=== PATIENT | male | born 1985 | race Caucasian/White ===

== ENCOUNTER 2018-07-21 13:19 | Inpatient (IN) | payer BC ==
[2018-07-21] MEDS ORDERED: Nicotine Inhaler* 10 MG AMP INH PRN (13:30)
--- NOTE | 2018-07-21 13:33 | ED ---
Psychiatric Complaint - HPI Summary HPI Summary: Pt is a 32 y/o male who presents to the ED s/p suicide attempt. He states hes been going through a lot recently, including breaking up with his girlfriend. Pt has been drinking a lot, and states he cant sleep or work. Last night he drank a pint of whiskey, and tried to kill himself by hooking a hose up to the exhaust of his car. He states he couldnt go through with it entirely, and called his friend to take him to the ED for help. He tried to check into rehab for his alcoholism, but everything was closed because of the holiday weekend. Pt feels very anxious right now. He has gone through alcohol withdrawal before. Pt states he has been eating normally. - History Of Current Complaint Chief Complaint: EDMentalHealth Time Seen by Provider: 07/21/18 13:29 Hx Obtained From: Patient Onset/Duration: Gradual Onset, Lasting Days - Last night, Still Present Character: Depressed, Anxious Aggravating Factor(s): Recent Stress, Alcohol Use Alleviating Factor(s): Nothing Has Suicidal: Reports: Thoughts, With A Plan, Demonstrates Gesture Has Homicidal: Denies: Thoughts - Allergies/Home Medications Allergies/Adverse Reactions: Allergies Allergy/AdvReac Type Severity Reaction Status Date / Time No Known Allergies Allergy Verified 07/21/18 13:26 PMH/Surg Hx/FS Hx/Imm Hx Endocrine/Hematology History: Denies: Hx Diabetes, Hx Thyroid Disease Cardiovascular History: Denies: Hx Hypertension Respiratory History: Denies: Hx Asthma, Hx Chronic Obstructive Pulmonary Disease (COPD) GI History: Denies: Hx Ulcer Infectious Disease History: No Infectious Disease History: Denies: Hx Clostridium Difficile, Hx Hepatitis, Hx Human Immunodeficiency Virus (HIV), Hx of Known/Suspected MRSA, Hx Shingles, Hx Tuberculosis, Hx Known/ Suspected VRE, Hx Known/Suspected VRSA, History Other Infectious Disease, Traveled Outside the [place] in Last 30 Days - Family History Known Family History: Negative: Other - alcoholism - Social History Alcohol Use: Daily Hx Substance Use: Yes Substance Use Type: Reports: Marijuana Review of Systems Negative: Fever Positive: Anxious, Depressed, Other - suicide ideations and attempt All Other Systems Reviewed And Are Negative: Yes Physical Exam - Summary Physical Exam Summary: Appearance: Well appearing, no pain distress Skin: warm, dry, flushing in face Head/face: normal Eyes: EOMI, SHRUTI, no nystagmus ENT: mucous membranes moist Neck: supple, non-tender Respiratory: CTA, breath sounds present Cardiovascular: RRR, pulses symmetrical Abdomen: non-tender, soft Bowel Sounds: present Musculoskeletal: normal, strength/ROM intact Neuro: normal, sensory motor intact, A&Ox3, fine tremor in hands Psych: tearful, mildly agitated, SI, flat affect, doesnt maintain eye contact Triage Information Reviewed: Yes Vital Signs On Initial Exam: Initial Vitals Temp Pulse Resp BP Pulse Ox 98.6 F 96 20 163/110 97 07/21/18 13:20 07/21/18 13:20 07/21/18 13:20 07/21/18 13:20 07/21/18 13:20 Vital Signs Reviewed: Yes Diagnostics - Vital Signs Vital Signs Temp Pulse Resp BP Pulse Ox 07/21/18 13:20 98.6 F 96 20 163/110 97 - Laboratory Result Diagrams: 07/21/18 13:50 07/21/18 13:50 Lab Statement: Any lab studies that have been ordered have been reviewed, and results considered in the medical decision making process. - EKG 13:51 Cardiac Rate: NL - 94 bpm EKG Rhythm: Sinus Rhythm Summary of EKG Findings: Nl axis, nl interval Re-Evaluation - Re-Evaluation First Eval Re-Evaluation Time: 13:40 Change: Unchanged Comment: Pt is medically cleared for a MHE. Course/Dx - Course Course Of Treatment: Patient sobered in the ER and was cleared for mental health evaluation. He was pending disposition by crisis at time of sign out to oncoming ER physician. Patient likely will be admitted. - Differential Dx/Clinical Impression Differential Diagnosis/HQI/PQRI: Positive: Acute Psychosis, Alcohol Intoxication , Anxiety, Bipolar Disorder, Depression, Suicidal Ideation, Suicidal Gesture Provider Diagnosis: Depression, Suicide gesture Discharge - Sign-Out/Discharge Documenting (check all that apply): Sign-Out Patient Signing out patient TO: Toñito Heart - Discharge Plan Condition: Stable Referrals: No Primary Care Phys,NOPCP [Primary Care Provider] - - Billing Disposition and Condition Condition: STABLE - Attestation Statements Document Initiated by Scribe: Yes Documenting Scribe: Mary Beth Kaye Provider For Whom Scribe is Documenting (Include Credential): Arnoldo Prince MD Scribe Attestation: I, Mary Beth Kaye, scribed for Arnoldo Prince MD on 07/21/18 at 1923. Scribe Documentation Reviewed: Yes Provider Attestation: The documentation as recorded by the scribe, Mary Beth Kaye accurately reflects the service I personally performed and the decisions made by me, Arnoldo Prince MD
[2018-07-21] MEDS ORDERED: LORazepam TAB(*) 1 MG PO ONE (13:38)
[2018-07-21 13:58] LABS: ABS Basophils 0.1 10^3/ul (0-0.2); ABS Eosinophils 0.1 10^3/ul (0-0.6); ABS Lymphocytes 1.1 10^3/ul (1.0-4.8); ABS Monocytes 0.9 10^3/ul (0-0.8); ABS Neutrophils 8.7 10^3/ul (1.5-7.7); ABS Nucleated RBC 0 10^3/ul; Eosinophil % 1.2 % (0-6); Hematocrit 48 % (42-52); Hemoglobin 16.3 g/dl (14.0-18.0); Lymphocyte % 10.2 % (25-47); Mean Corpuscular HGB Conc 34 g/dl (31-36); Mean Corpuscular Hemoglobin 31 pg (27-31); Mean Corpuscular Volume 92 fL (80-94); Mean Platelet Volume 9.3 fL (7.4-10.4); Nucleated Red Blood Cells % 0.4; Platelet Count 225 10^3/ul (150-450); Red Cell Distribution Width 13 % (10.5-15); White Blood Count 10.9 10^3/ul (3.5-10.8)
[2018-07-21 14:16] LABS: EGFR Non-African American 83.9 (>60)
[2018-07-21 16:22] LABS: Urine Appearance Clear; Urine Blood Negative (Negative); Urine Color Amber; Urine Ketones 1+ (Negative); Urine Protein Negative (Negative); Urine Urobilinogen Negative (Negative)
--- NOTE | 2018-07-21 20:45 | ED ---
Progress - Progress Note Progress Note: This patient was signed out to Dr. Heart, from Dr. Prince, pending dispo. MHE was done by Dr. Cruz at 2130 and the patient will be admitted with dx of depressive disorder. Patient understands and agrees with this plan. - Consult/PCP Time Called: 19:20 Re-Evaluation - Re-Evaluation First Eval Re-Evaluation Time: 13:40 Change: Unchanged Comment: Pt is medically cleared for a MHE. Course/Dx - Diagnoses Provider Diagnoses: Depressive disorder Discharge - Sign-Out/Discharge Documenting (check all that apply): Patient Departure - admit - Discharge Plan Condition: Stable Disposition: PSYCHIATRIC FACILITY-[facility] [place] - Billing Disposition and Condition Condition: STABLE Disposition: Psychiatric Facility [facility] [place] - Attestation Statements Document Initiated by Scribe: Yes Documenting Scribe: Hayden Trujillo Provider For Whom Scribe is Documenting (Include Credential): Toñito Heart MD Scribe Attestation: Hayden Stanton, scribed for Toñito Heart MD on 07/25/18 at 0737. Scribe Documentation Reviewed: Yes Provider Attestation: The documentation as recorded by the Hayden gustafson accurately reflects the service I personally performed and the decisions made by , Toñito Heart MD
[2018-07-22] MEDS ORDERED: Al Hydrox/Mg Hydrox/Simet LIQ* 30 ML UDC PO PRN (00:39)
[2018-07-22] MEDS ORDERED: Acetaminophen TAB* 325 MG PO PRN (00:39)
[2018-07-22] MEDS ORDERED: LORazepam IM 0-6 mg for WAM protocol IM SCH (06:00)
[2018-07-22] MEDS: Folic Acid TAB* 1 MG DAILY PO SCH ×2 (08:55→11:21)
[2018-07-22] MEDS: Vitamin THERAPEUTIC TAB PO SCH ×2 (08:55→11:21)
[2018-07-22] MEDS: LORazepam PO 0-6 for WAM protocol PO SCH (11:21)
[2018-07-22] MEDS ORDERED: hydrOXYzine HCL TAB* 25 MG PO PRN ×2 (11:51→11:56)
[2018-07-22] MEDS ORDERED: Mirtazapine TAB* 15 MG PO PRN (11:55)
--- NOTE | 2018-07-22 13:21 | PN ---
MHU: Group Therapy Note - Service Type Service Type: [id number] Group Psychotherapy - Cognitive Behavioral Group Therapy ( CBT):Patient attended CBT programming this morning and presented with flat affect that did not vary with discussion. Although responsive to direct prompts to respond to questions, patient did not engage in spontaneous conversation.
--- NOTE | 2018-07-22 16:54 | HP ---
H&P (Free Text) History and Physical: JUSTIFICATION FOR ADMISSION: Patient presented to emergency room with suicidal ideation and plan, worsening depression and alcoholism, recent break up. He requires inpatient psychiatric admission in order to provide treatment and stabilization as he is a danger to himself. CHIEF COMPLAINT: "I was having suicidal thoughts and was not feeling safe and called my friend HISTORY OF THE PRESENT ILLNESS: Patient is a 32 y/o male, single, living with room mates, employed, with history of Alcohol Use Disorder. Patient has has not been in any psychiatric or substance abuse treatment. Patient reports that symptoms worsened when she came home drunk with last week with another male friend. Patient reportedly has been struggling since then and working to resolve conflict and recent decision of breaking up with his girl friend. Patient was admitted to inpatient unit for worsening of his depression, decrease appetites, disturbed sleep, inability to concentrate, anhedonia, drinking 3-10 drinks of alcohol daily. Patient reportedly under the influence of alcohol planned how he was going to from suicide by carbon monoxide poisoning. Patient was making arrangement to but due to alcohol intoxication was unable to carry it out. Patient next morning continue to have suicidal thoughts and was feeling unsafe hence called his friend. Patient's friend brought patient to E.D for evaluation. Patient reports no manic symptoms. Patient reports no psychotic symptoms. Patient denied any suicidal or homicidal ideation on the unit. Patient continued to exhibit behavior that was in control and feels safe at the hospital. Patient continues to report depression and anxiety and was feeling intensely worries this morning with his current situation. PAST PSYCHIATRIC HISTORY: Patient has history of no inpatient psychiatric hospitalization. Patient has history of no outpatient psychiatric treatment. Patients reports no medication trial. .Patient has been in no inpatient or outpatient drug treatment. Patient has history of suicidal thoughts in the past during divorce about couple of years ago but no intent or attempt. Patient has history of no homicidal threat, no intent or attempt. Patient reports no history of aggressive and agitated behavior when decompensates. No access to firearm reported. Patient reports no physical, emotional or sexual abuse. SUBSTANCE ABUSE HISTORY: Patient uses alcohol on a daily basis since his teenage years. Patient has history of DWI during teenage years. Patient has been associated and working in wine industry. Patient now a days has been consuming 3-10 drinks of wine daily. Patient last use was saturday night, a pint of wine. BAL was 124. Patient denied any substance abuse but urine toxicology was positive for cannabis. Patient has been in no inpatient and outpatient treatment for drugs but is willing to follow up with inpatient rehab. PAST MEDICAL HISTORY: No active medical problems ALLERGIES: [facility] FAMILY PSYCHIATRIC HISTORY: Patient reports family history of brother with depression, who was hospitalized at a point in his life. But patient not aware of treatment and has limited communication with him. Patient reports no history of substance abuse in family. No reported suicide in the family. FAMILY/PSYCHOSOCIAL HISTORY: Patient currently lives with his room mate. Patient reports that he was in relationship a room mate that he broke up with recently. Patient reports redefining her relationship after previous break up with her. Patient reported being in open relationship with her before this recent break up. Patient was for eight year until divorce that happened couple of yeas ago. Patient has no children. Patient education level is Bachelors. Patient was raised by both his parents which he has some level of communication every other week over the phone and physically meets them every month. Patient reports memories of his parents fighting over issues including finances etc that he still recalls at times during his child mustafa . Patient support system includes friends and families. REVIEW OF SYSTEMS: Patients review of symptoms was negative for any physical complaint. Patient is currently on [facility] for detox from Alcohol and vitals has been improving. Patients ED physical exam was reviewed which is grossly normal with no active medical problem. Physical Exam Summary: Appearance: Well appearing, no pain distress Skin: warm, dry, flushing in face Head/face: normal Eyes: EOMI, SHRUTI, no nystagmus ENT: mucous membranes moist Neck: supple, non-tender Respiratory: CTA, breath sounds present Cardiovascular: RRR, pulses symmetrical Abdomen: non-tender, soft Bowel Sounds: present Musculoskeletal: normal, strength/ROM intact Neuro: normal, sensory motor intact, A&Ox3, fine tremor in hands Psych: tearful, mildly agitated, SI, flat affect, doesnt maintain eye contact MENTAL STATUS EXAMINATION: Appearance: 32 y/o male, appear stated age, making intermittent eye contact, fair grooming and hygiene. Behavior: cooperative Gait: normal Abnormal motor activity: normal Speech: normal rate and rhythm, low tone and volume Mood: depressed Affect: constricted Thought process: coherent Thought Content: Suicidal/Homicidal ideation: passive si, no hi Delusions: none Obsessions: none Phobia: none Perceptual disturbance: none Attention: fair Orientation: grossly intact Concentration: limited Memory: fair Insight: fair Judgment: fair Impulse control: fair at time of interview IMPRESSION: Patient with history of Alcohol Use Disorder. Patient currently admitted due to worsening of depression and suicidal thoughts with plan and alcoholism. Patient has also struggled with recent break up with his girl friend. Patient is a danger to self if discharged hence will be stabilized on inpatient unit with medication adjustments and therapy. DIAGNOSIS: Depressive Disorder unspecified, Alcohol Use Disorder Prov: Alcohol Induced Depressive Disorder, Cannabis Abuse PLAN: Admit to [facility] on Q 15 min observation. Patient is full code. Patient is on voluntary admission status Integrate patient into the milieu individual and group psychotherapy MMPI and psychological consult with Dr. Rankin. Social work consult for therapy and discharge planning Will hold family meeting with parents to increase Data base. Patient gave informed consent to start the following medications: Patient to continue with WAM for alcohol withdrawal symptoms. Patient to be started on Remeron 7.5 mg PO HS for depression. Patient was also started on Hydroxyzine 50 mg PO Q6HRs PRN anxiety. Will continue to monitor and f/u for improvement and side effects. Steffanie Stein MD Attending Psychiatrist
[2018-07-22] MEDS: Mirtazapine TAB* 15 MG PO SCH (20:27)
[2018-07-23] MEDS: Folic Acid TAB* 1 MG DAILY PO SCH (09:09)
[2018-07-23] MEDS: Vitamin THERAPEUTIC TAB PO SCH (09:09)
--- NOTE | 2018-07-23 11:57 | PN ---
MHU: Group Therapy Note - Service Type Service Type: [id number] Group Psychotherapy - Cognitive Behavioral Group Therapy ( CBT):Patient attended CBT programming this morning and presented with flat affect that did not vary with discussion. Although responsive to direct prompts to respond to questions, patient did not engage in spontaneous conversation.
--- NOTE | 2018-07-23 12:35 | PN ---
Subjective - Subjective Date of Service: 07/23/18 Service Type: [id number] Hosp care 15 min low complexity Subjective: Patient was seen by self, discussed with treatment team, chart was reviewed. Patient has been compliant with his medications, no reported side effects. Patient reports continued symptoms of depression and anxiety. Patient reported taking Hydroxyzine PRN for anxiety. Patient motivated to get help for alcohol use and depression. Patient wanted to explore options for himself regarding rehab treatment (inpatient or outpatient). Patient sleeping has been better with Remeron. Patient eating has been fair. Patient has been cooperative with staff. Patient behavior has been in control. Patient mood was less anxious and dysphoric and reports improvement in suicidal thoughts. Patient felt that his room mate was support and came to see him yesterday at the hospital. Patient has been reporting no homicidal ideation. No psychotic symptoms of delusions or hallucinations. Objective - Appearance Appearance: Healthy Appearing Dysmorphic Features: No Hygiene: Normal Grooming: Fairly Well Kept - Behavior Psychomotor Activities: Normal Exhibits Abnormal Movement: No - Attitude and Relatedness Attitude and Relatedness: Cooperative Eye Contact: Fair - Speech Quality: Unpressured Latencies: Normal Quantity: Appropriate - Mood Patient's Decription of Mood: "Anxious" - Affect Observed Affect: Depressed Affect Consistent with: Dysphoria - Thought Process Patient's Thought Process: Coherent, Circumstantial Thought Content: No Passive Wish, No Suicidal Planning, No Homicidal Ideation, No Paranoid Ideation - Sensorium Experiencing Hallucinations: No, Sensorium is Clear Type of Hallucinations: Visual: No, Auditory: No, Command: No - Level of Consciousness Level of Consciousness: Alert Orientation: Yes Intact, Yes Orientated to Time, Yes Orientated to Place, Yes Orientated to Person - Impulse Control Impulse Control: Intact - Insight and Judgement Insight and Judgement: Fair - Group Participation Particating in Group Activities: Yes - Medication Management Medication Management Adherence: Yes Assessment - Assessment Merits Inpatient Hospitalization: For Immediate Safety, For Stabilization, For Discharge Planning Inpatient DSM-V Dx: F33.8 Clinical Impression: Patient with history of Alcohol Use Disorder. Patient currently admitted due to worsening of depression and suicidal thoughts with plan and alcoholism. Patient has also struggled with recent break up with his girl friend. Patient is a danger to self if discharged hence will be stabilized on inpatient unit with medication adjustments and therapy. MHU: Problem List - Patient Problems (1) Alcohol use disorder Current Visit: Yes Status: Acute Code(s): [id number] - SNOMED Code(s): 53345839 (2) Depressive disorder Current Visit: Yes Status: Acute Code(s): F32.9 - MAJOR DEPRESSIVE DISORDER , SINGLE EPISODE, UNSPECIFIED SNOMED Code(s): 60672212 Plan - Plan Treatment Plan: Name: COBY BAILEY Birthdate: 1985 [id number] - Patient continues to be hospitalized due to recent suicidal thoughts with plan , depression, anxiety and alcohol abuse. - Patient's medications were continued with Remeron 7.5 mg at Bedtime, Hydroxyzine was kept at 50 mg PO Q6HRS PRN anxiety. [facility] protocol for alcohol withdrawal to be continued. - Ordered Nicotine patch as per patient request and experience nicotine withdrawal. - Patient will be monitored for improvement and side effects. Risk and benefits were discussed. - Patient was encouraged to continue his participation in the milieu, group and individual therapy. Medications: Current Medications Acetaminophen (Tylenol Tab*) 650 mg PO Q4H PRN PRN Reason: PAIN or TEMP > 101 F Al Hydrox/Mg Hydrox/Simethicone (Maalox Plus*) 30 ml PO Q4H PRN PRN Reason: INDIGESTION Folic Acid (Folvite Tab*) 1 mg PO DAILY [facility] Last Admin: 07/23/18 09:09 Dose: 1 mg Hydroxyzine HCl (Atarax Tab*) 50 mg PO Q6H PRN PRN Reason: ANXIETY Last Admin: 07/23/18 09:10 Dose: 50 mg Lorazepam (Ativan Tab(*)) 0 - 6 mg PO .PER [facility] PARAMETERS NING; Protocol Last Admin: 07/22/18 11:21 Dose: 3 mg Lorazepam (Ativan Inj*) 0 - 6 mg IM .PER [facility] PROTOCOL [facility]; Protocol Mirtazapine (Remeron Tab*) 7.5 mg PO BEDTIME [facility] Last Admin: 07/22/18 20:27 Dose: 7.5 mg Multivitamins (Theragran Tab*) 1 tab PO DAILY [facility] Last Admin: 07/23/18 09:09 Dose: 1 tab Nicotine (Nicotine Inhaler*) 10 mg INH Q2H PRN PRN Reason: CRAVING Nicotine (Nicotine Patch 21 Mg/24 Hr*) 1 patch TRANSDERM DAILY [facility] Pharmacy Profile Note (Nicotine Patch Removal Note*) 1 note FOLLOW UP 2100 NING
[2018-07-23] MEDS: LORazepam PO 0-6 for WAM protocol PO SCH (14:51)
[2018-07-23] MEDS: Nicotine PATCH 21 MG/24 HR* PATCH TRANSDERM SCH (19:26)
[2018-07-23] MEDS: Mirtazapine TAB* 15 MG PO SCH (20:57)
[2018-07-23] MEDS: Nicotine Patch Removal NOTE FOLLOW UP SCH (21:01)
[2018-07-24] MEDS: Nicotine PATCH 21 MG/24 HR* PATCH TRANSDERM SCH (09:21)
[2018-07-24] MEDS: Vitamin THERAPEUTIC TAB PO SCH (09:22)
[2018-07-24] MEDS: Folic Acid TAB* 1 MG DAILY PO SCH (09:22)
--- NOTE | 2018-07-24 13:57 | PN ---
Subjective - Subjective Date of Service: 07/24/18 Service Type: [id number] Hosp care 15 min low complexity Subjective: Patient was seen by self, discussed with treatment team, chart was reviewed. Patient has been compliant with his medications, no reported side effects. Patient reports continued symptoms of depression and anxiety with some improvement. Patient is recovering fine with alcohol withdrawal. Patient reported taking Hydroxyzine PRN for anxiety. Patient continues to show motivation to get help for alcohol use and depression. Patient has been interested in inpatient rehab after knowing about available opitions. Patient sleeping has been better with Remeron. Patient eating has been fair. Patient has been cooperative with staff. Patient behavior has been in control. Patient mood was less anxious and dysphoric and reports. Patient has been reporting no homicidal ideation or suicidal ideation. No psychotic symptoms of delusions or hallucinations. Patient was worried about logistics related to him going to inpatient rehab, his housing, insurance, work etc for which he was provided education and support. Objective - Appearance Appearance: Healthy Appearing Dysmorphic Features: No Hygiene: Normal Grooming: Fairly Well Kept - Behavior Psychomotor Activities: Normal Exhibits Abnormal Movement: No - Attitude and Relatedness Attitude and Relatedness: Cooperative Eye Contact: Fair - Speech Quality: Unpressured Latencies: Normal Quantity: Appropriate - Mood Patient's Decription of Mood: "Anxious" - Affect Observed Affect: Depressed Affect Consistent with: Dysphoria - Thought Process Patient's Thought Process: Coherent, Goal Directed Thought Content: No Passive Wish, No Suicidal Planning, No Homicidal Ideation, No Paranoid Ideation - Sensorium Experiencing Hallucinations: No, Sensorium is Clear Type of Hallucinations: Visual: No, Auditory: No, Command: No - Level of Consciousness Level of Consciousness: Alert Orientation: Yes Intact, Yes Orientated to Time, Yes Orientated to Place, Yes Orientated to Person - Impulse Control Impulse Control: Intact - Insight and Judgement Insight and Judgement: Fair - Group Participation Particating in Group Activities: Yes - Medication Management Medication Management Adherence: Yes Assessment - Assessment Merits Inpatient Hospitalization: For Immediate Safety, For Stabilization, For Discharge Planning Inpatient DSM-V Dx: F33.8 Clinical Impression: Patient with history of Alcohol Use Disorder. Patient currently admitted due to worsening of depression and suicidal thoughts with plan and alcoholism. Patient has also struggled with recent break up with his girl friend. Patient is a danger to self if discharged hence will be stabilized on inpatient unit with medication adjustments and therapy. MHU: Problem List - Patient Problems (1) Alcohol use disorder Current Visit: Yes Status: Acute Code(s): FVD6691 - SNOMED Code(s): 38758974 (2) Depressive disorder Current Visit: Yes Status: Acute Code(s): F32.9 - MAJOR DEPRESSIVE DISORDER , SINGLE EPISODE, UNSPECIFIED SNOMED Code(s): 89013964 Plan - Plan Treatment Plan: Name: COBY BAILEY Birthdate: 1985 [id number] - Patient continues to be hospitalized due to recent suicidal thoughts with plan , depression, anxiety and alcohol abuse. - Patient's medications were adjusted with increment in Remeron to 15 mg at Bedtime, Hydroxyzine was kept at 50 mg PO Q6HRS PRN anxiety. [facility] protocol for alcohol withdrawal to be continued. Patient also in the process of being referred to rehab. - Ordered Nicotine patch as per patient request and experience nicotine withdrawal. - Patient will be monitored for improvement and side effects. Risk and benefits were discussed. - Patient was encouraged to continue his participation in the milieu, group and individual therapy. Medications: Current Medications Acetaminophen (Tylenol Tab*) 650 mg PO Q4H PRN PRN Reason: PAIN or TEMP > 101 F Al Hydrox/Mg Hydrox/Simethicone (Maalox Plus*) 30 ml PO Q4H PRN PRN Reason: INDIGESTION Folic Acid (Folvite Tab*) 1 mg PO DAILY [facility] Last Admin: 07/24/18 09:22 Dose: 1 mg Hydroxyzine HCl (Atarax Tab*) 50 mg PO Q6H PRN PRN Reason: ANXIETY Last Admin: 07/23/18 09:10 Dose: 50 mg Lorazepam (Ativan Tab(*)) 0 - 6 mg PO .PER [facility] PARAMETERS NING; Protocol Last Admin: 07/23/18 14:51 Dose: 2 mg Lorazepam (Ativan Inj*) 0 - 6 mg IM .PER [facility] PROTOCOL [facility]; Protocol Mirtazapine (Remeron Tab*) 15 mg PO BEDTIME NING Multivitamins (Theragran Tab*) 1 tab PO DAILY NING Last Admin: 07/24/18 09:22 Dose: 1 tab Nicotine (Nicotine Inhaler*) 10 mg INH Q2H PRN PRN Reason: CRAVING Nicotine (Nicotine Patch 21 Mg/24 Hr*) 1 patch TRANSDERM DAILY [facility] Last Admin: 07/24/18 09:21 Dose: Not Given Pharmacy Profile Note (Nicotine Patch Removal Note*) 1 note FOLLOW UP 2100 [facility] Last Admin: 07/23/18 21:01 Dose: Not Given Thiamine HCl (Vitamin B-1 Tab*) 100 mg PO DAILY NING
[2018-07-24] MEDS: Mirtazapine TAB* 15 MG PO SCH (20:17)
[2018-07-24] MEDS: Nicotine Patch Removal NOTE FOLLOW UP SCH (20:17)
[2018-07-25] MEDS: Thiamine TAB* 100 MG TAB PO SCH (08:42)
[2018-07-25] MEDS: Nicotine PATCH 21 MG/24 HR* PATCH TRANSDERM SCH (08:42)
[2018-07-25] MEDS: Folic Acid TAB* 1 MG DAILY PO SCH (08:42)
[2018-07-25] MEDS: Vitamin THERAPEUTIC TAB PO SCH (08:42)
--- NOTE | 2018-07-25 11:30 | PN ---
Subjective - Subjective Date of Service: 07/25/18 Service Type: 149[address] [facility] care 15 min low complexity Subjective: Patient was seen by self, discussed with treatment team, chart was reviewed. Patient has been compliant with his medications, no reported side effects. Patient reports some improvement in symptoms of depression and anxiety. Patient is recovering fine with alcohol withdrawal and did not score on WAM. Patient reported taking Hydroxyzine PRN for anxiety. Patient continues to show motivation to get help for alcohol use and depression. Patient continues to show interest in inpatient rehab. Patient sleeping has been better with Remeron. Patient eating has been fair. Patient has been cooperative with staff. Patient behavior has been in control. Patient mood was less anxious but dysphoric and has been learning skills to cope with psychosocial stress. Patient has been reporting no homicidal ideation or suicidal ideation. No psychotic symptoms of delusions or hallucinations. Objective - Appearance Appearance: Healthy Appearing Dysmorphic Features: No Hygiene: Normal Grooming: Fairly Well Kept - Behavior Psychomotor Activities: Normal Exhibits Abnormal Movement: No - Attitude and Relatedness Attitude and Relatedness: Cooperative Eye Contact: Fair - Speech Quality: Unpressured Latencies: Normal Quantity: Appropriate - Mood Patient's Decription of Mood: "Sad" - Affect Observed Affect: Depressed Affect Consistent with: Dysphoria - Thought Process Patient's Thought Process: Coherent Thought Content: No Passive Wish, No Suicidal Planning, No Homicidal Ideation, No Paranoid Ideation - Sensorium Experiencing Hallucinations: No, Sensorium is Clear Type of Hallucinations: Visual: No, Auditory: No, Command: No - Level of Consciousness Level of Consciousness: Alert Orientation: Yes Intact, Yes Orientated to Time, Yes Orientated to Place, Yes Orientated to Person - Impulse Control Impulse Control: Intact - Insight and Judgement Insight and Judgement: Fair - Group Participation Particating in Group Activities: Yes - Medication Management Medication Management Adherence: Yes Assessment - Assessment Merits Inpatient Hospitalization: For Immediate Safety, For Stabilization, For Discharge Planning Inpatient DSM-V Dx: F33.8 Clinical Impression: Patient with history of Alcohol Use Disorder. Patient currently admitted due to worsening of depression and suicidal thoughts with plan and alcoholism. Patient has also struggled with recent break up with his girl friend. Patient is a danger to self if discharged hence will be stabilized on inpatient unit with medication adjustments and therapy. MHU: Problem List - Patient Problems (1) Alcohol use disorder Current Visit: Yes Status: Acute Code(s): NEZ1233 - SNOMED Code(s): 22231490 (2) Depressive disorder Current Visit: Yes Status: Acute Code(s): F32.9 - MAJOR DEPRESSIVE DISORDER , SINGLE EPISODE, UNSPECIFIED SNOMED Code(s): 30093398 Plan - Plan Treatment Plan: Name: COBY BAILEY Birthdate: 1985 [id number] - Patient continues to be hospitalized due to recent suicidal thoughts with plan , depression, anxiety and alcohol abuse. - Patient's medications were continued with Remeron 15 mg at Bedtime, Hydroxyzine was kept at 50 mg PO Q6HRS PRN anxiety. WA protocol was discontinued. Patient also in the process of being referred to rehab. - Ordered Nicotine patch as per patient request and experience nicotine withdrawal. - Patient will be monitored for improvement and side effects. Risk and benefits were discussed. - Patient was encouraged to continue his participation in the milieu, group and individual therapy. Medications: Current Medications Acetaminophen (Tylenol Tab*) 650 mg PO Q4H PRN PRN Reason: PAIN or TEMP > 101 F Al Hydrox/Mg Hydrox/Simethicone (Maalox Plus*) 30 ml PO Q4H PRN PRN Reason: INDIGESTION Folic Acid (Folvite Tab*) 1 mg PO DAILY [facility] Last Admin: 07/25/18 08:42 Dose: 1 mg Hydroxyzine HCl (Atarax Tab*) 50 mg PO Q6H PRN PRN Reason: ANXIETY Last Admin: 07/23/18 09:10 Dose: 50 mg Lorazepam (Ativan Tab(*)) 0 - [address] [facility] PARAMETERS NING; Protocol Last Admin: 07/23/18 14:51 Dose: 2 mg Lorazepam (Ativan Inj*) 0 - [address] [facility] PROTOCOL [facility]; Protocol Mirtazapine (Remeron Tab*) 15 mg PO BEDTIME [facility] Last Admin: 07/24/18 20:17 Dose: 15 mg Multivitamins (Theragran Tab*) 1 tab PO DAILY [facility] Last Admin: 07/25/18 08:42 Dose: 1 tab Nicotine (Nicotine Inhaler*) 10 mg INH Q2H PRN PRN Reason: CRAVING Nicotine (Nicotine Patch 21 Mg/24 Hr*) 1 patch TRANSDERM DAILY [facility] Last Admin: 07/25/18 08:42 Dose: Not Given Pharmacy Profile Note (Nicotine Patch Removal Note*) 1 note FOLLOW UP 2100 [facility] Last Admin: 07/24/18 20:17 Dose: Not Given Thiamine HCl (Vitamin B-1 Tab*) 100 mg PO DAILY [facility] Last Admin: 07/25/18 08:42 Dose: 100 mg
[2018-07-25] MEDS: Mirtazapine TAB* 15 MG PO SCH (20:13)
[2018-07-25] MEDS: Nicotine Patch Removal NOTE FOLLOW UP SCH (20:15)
[2018-07-26] MEDS: Thiamine TAB* 100 MG TAB PO SCH (09:07)
[2018-07-26] MEDS: Vitamin THERAPEUTIC TAB PO SCH (09:07)
[2018-07-26] MEDS: Folic Acid TAB* 1 MG DAILY PO SCH (09:07)
[2018-07-26] MEDS: Nicotine PATCH 21 MG/24 HR* PATCH TRANSDERM SCH (09:08)
--- NOTE | 2018-07-26 14:38 | PN ---
Subjective - Subjective Date of Service: 07/26/18 Subjective: Patient is euthymic in mood and affect. He reports that he requested discharge on Saturday. He is hopeful to be discharged and then admitted to [facility]. This plan has been set in motion, although there is no current available bed at this date as of Saturday according to the [employer]. Patient states that his room mates have been a sources of support with regards to admission of alcoholism, but that he has not told his parents feeling that divulging this will be met with disappointment. He feels that if [facility] is an option that he would like a therapist. Alcoholics Anonymous and a Sponsor and outpatient Substance Abuse Treatment was encouraged strongly. He readily agrees that his is something he would like to pursue if [facility] does not come to fruition. He reports attending groups, reporting no SI/HI and states that his mood has greatly improved. Smiling and conversant during interview. Reports no withdrawal complaints, no side effects from medications Objective - Appearance Appearance: Well Developed/Nourished Dysmorphic Features: No Hygiene: Normal Grooming: Well Kept - Behavior Psychomotor Activities: Normal Exhibits Abnormal Movement: No - Attitude and Relatedness Attitude and Relatedness: Cooperative Eye Contact: Good - Speech Quality: Unpressured Latencies: Normal Quantity: Appropriate - Mood Patient's Decription of Mood: "Good" - Affect Observed Affect: Good Affect Consistent with: Euthymia - Thought Process Patient's Thought Process: Coherent Thought Content: No Passive Wish, No Suicidal Planning, No Homicidal Ideation, No Paranoid Ideation - Sensorium Experiencing Hallucinations: No, Sensorium is Clear Type of Hallucinations: Visual: No, Auditory: No, Command: No - Level of Consciousness Level of Consciousness: Alert Orientation: Yes Intact, Yes Orientated to Time, Yes Orientated to Place, Yes Orientated to Person - Impulse Control Impulse Control: Intact - Insight and Judgement Insight and Judgement: Fair - Group Participation Particating in Group Activities: Yes Group Participation Comments: Attending Groups - Medication Management Medication Management Adherence: Yes Assessment - Assessment Merits Inpatient Hospitalization: For Ongoing Evaluation Inpatient DSM-V Dx: F33.8 Clinical Impression: Patient is requesting discharge on Saturday and is hoping to be participating in [facility]. He did not have a secondary plan to this. He reports that his roommates are aware that he is in the hospital and reasons, further reporting that his good friend Ector has been a great support to him while hospitalized. 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 He is open to Outpatient Substance Abuse Treatment and Outpatient Mental Health Services, Alcoholics Anonymous and a Sponsor. Patient with history of Alcohol Use Disorder. Patient currently admitted due to worsening of depression and suicidal thoughts with plan and alcoholism. Patient has also struggled with recent break up with his girl friend. Patient is a danger to self if discharged hence will be stabilized on inpatient unit with medication adjustments and therapy. Plan - Plan Treatment Plan: Name: COBY BAILEY Birthdate: 1985 [id number] - Patient continues to be hospitalized due to recent suicidal thoughts with plan , depression, anxiety and alcohol abuse. - Patient's medications were continued with Remeron 15 mg at Bedtime, Hydroxyzine was kept at 50 mg PO Q6HRS PRN anxiety. WAM protocol was discontinued. Patient also in the process of being referred to rehab. - Ordered Nicotine patch as per patient request and experience nicotine withdrawal. - Patient will be monitored for improvement and side effects. Risk and benefits were discussed. - Patient was encouraged to continue his participation in the milieu, group and individual therapy. Medications: Current Medications Acetaminophen (Tylenol Tab*) 650 mg PO Q4H PRN PRN Reason: PAIN or TEMP > 101 F Al Hydrox/Mg Hydrox/Simethicone (Maalox Plus*) 30 ml PO Q4H PRN PRN Reason: INDIGESTION Folic Acid (Folvite Tab*) 1 mg PO DAILY [facility] Last Admin: 07/26/18 09:07 Dose: 1 mg Hydroxyzine HCl (Atarax Tab*) 50 mg PO Q6H PRN PRN Reason: ANXIETY Last Admin: 07/23/18 09:10 Dose: 50 mg Mirtazapine (Remeron Tab*) 15 mg PO BEDTIME NING Last Admin: 07/25/18 20:13 Dose: Not Given Multivitamins (Theragran Tab*) 1 tab PO DAILY [facility] Last Admin: 07/26/18 09:07 Dose: 1 tab Nicotine (Nicotine Inhaler*) 10 mg INH Q2H PRN PRN Reason: CRAVING Nicotine (Nicotine Patch 21 Mg/24 Hr*) 1 patch TRANSDERM DAILY [facility] Last Admin: 07/26/18 09:08 Dose: Not Given Pharmacy Profile Note (Nicotine Patch Removal Note*) 1 note FOLLOW UP 2100 [facility] Last Admin: 07/25/18 20:15 Dose: Not Given Thiamine HCl (Vitamin B-1 Tab*) 100 mg PO DAILY [facility] Last Admin: 07/26/18 09:07 Dose: 100 mg
[2018-07-26] MEDS: Mirtazapine TAB* 15 MG PO SCH (21:20)
[2018-07-26] MEDS: Nicotine Patch Removal NOTE FOLLOW UP SCH (21:20)
[2018-07-27] MEDS: Thiamine TAB* 100 MG TAB PO SCH (08:51)
[2018-07-27] MEDS: Folic Acid TAB* 1 MG DAILY PO SCH (08:51)
[2018-07-27] MEDS: Vitamin THERAPEUTIC TAB PO SCH (08:51)
[2018-07-27] MEDS: Nicotine PATCH 21 MG/24 HR* PATCH TRANSDERM SCH (08:51)
[2018-07-27] MEDS: Mirtazapine TAB* 15 MG PO SCH (20:11)
[2018-07-27] MEDS: Nicotine Patch Removal NOTE FOLLOW UP SCH (20:12)
[2018-07-28 08:08] VITALS: BP 133/77
[2018-07-28] MEDS: Nicotine PATCH 21 MG/24 HR* PATCH TRANSDERM SCH (09:15)
[2018-07-28] MEDS: Thiamine TAB* 100 MG TAB PO SCH (09:16)
[2018-07-28] MEDS: Folic Acid TAB* 1 MG DAILY PO SCH (09:16)
[2018-07-28] MEDS: Vitamin THERAPEUTIC TAB PO SCH (09:16)
--- NOTE | 2018-07-28 13:49 | DS ---
Subjective - Subjective Service Types: [address]54[address] [facility] Day Mgmt complex over 30 min Discharge Date: 07/28/18 Subjective: JUSTIFICATION FOR ADMISSION: Patient presented to emergency room with suicidal ideation and plan, worsening depression and alcoholism, recent break up. He requires inpatient psychiatric admission in order to provide treatment and stabilization as he is a danger to himself. CHIEF COMPLAINT: "I was having suicidal thoughts and was not feeling safe and called my friend HISTORY OF THE PRESENT ILLNESS: Patient is a 32 y/o male, single, living with room mates, employed, with history of Alcohol Use Disorder. Patient has has not been in any psychiatric or substance abuse treatment. Patient reports that symptoms worsened when she came home drunk with last week with another male friend. Patient reportedly has been struggling since then and working to resolve conflict and recent decision of breaking up with his girl friend. Patient was admitted to inpatient unit for worsening of his depression, decrease appetites, disturbed sleep, inability to concentrate, anhedonia, drinking 3-10 drinks of alcohol daily. Patient reportedly under the influence of alcohol planned how he was going to from suicide by carbon monoxide poisoning. Patient was making arrangement to but due to alcohol intoxication was unable to carry it out. Patient next morning continue to have suicidal thoughts and was feeling unsafe hence called his friend. Patient's friend brought patient to E.D for evaluation. Patient reports no manic symptoms. Patient reports no psychotic symptoms. Patient denied any suicidal or homicidal ideation on the unit. Patient continued to exhibit behavior that was in control and feels safe at the hospital. Patient continues to report depression and anxiety and was feeling intensely worries this morning with his current situation. PAST PSYCHIATRIC HISTORY: Patient has history of no inpatient psychiatric hospitalization. Patient has history of no outpatient psychiatric treatment. Patients reports no medication trial. .Patient has been in no inpatient or outpatient drug treatment. Patient has history of suicidal thoughts in the past during divorce about couple of years ago but no intent or attempt. Patient has history of no homicidal threat, no intent or attempt. Patient reports no history of aggressive and agitated behavior when decompensates. No access to firearm reported. Patient reports no physical, emotional or sexual abuse. SUBSTANCE ABUSE HISTORY: Patient uses alcohol on a daily basis since his teenage years. Patient has history of DWI during teenage years. Patient has been associated and working in wine industry. Patient now a days has been consuming 3-10 drinks of wine daily. Patient last use was saturday night, a pint of wine. BAL was 124. Patient denied any substance abuse but urine toxicology was positive for cannabis. Patient has been in no inpatient and outpatient treatment for drugs but is willing to follow up with inpatient rehab. PAST MEDICAL HISTORY: No active medical problems ALLERGIES: NKA FAMILY PSYCHIATRIC HISTORY: Patient reports family history of brother with depression, who was hospitalized at a point in his life. But patient not aware of treatment and has limited communication with him. Patient reports no history of substance abuse in family. No reported suicide in the family. FAMILY/PSYCHOSOCIAL HISTORY: Patient currently lives with his room mate. Patient reports that he was in relationship a room mate that he broke up with recently. Patient reports redefining her relationship after previous break up with her. Patient reported being in open relationship with her before this recent break up. Patient was for eight year until divorce that happened couple of yeas ago. Patient has no children. Patient education level is Bachelors. Patient was raised by both his parents which he has some level of communication every other week over the phone and physically meets them every month. Patient reports memories of his parents fighting over issues including finances etc that he still recalls at times during his child mustafa . Patient support system includes friends and families. REVIEW OF SYSTEMS: Patients review of symptoms was negative for any physical complaint. Patient is currently on WA for detox from Alcohol and vitals has been improving. Patients ED physical exam was reviewed which is grossly normal with no active medical problem. Physical Exam Summary: Appearance: Well appearing, no pain distress Skin: warm, dry, flushing in face Head/face: normal Eyes: EOMI, SHRUTI, no nystagmus ENT: mucous membranes moist Neck: supple, non-tender Respiratory: CTA, breath sounds present Cardiovascular: RRR, pulses symmetrical Abdomen: non-tender, soft Bowel Sounds: present Musculoskeletal: normal, strength/ROM intact Neuro: normal, sensory motor intact, A&Ox3, fine tremor in hands Psych: tearful, mildly agitated, SI, flat affect, doesnt maintain eye contact MENTAL STATUS EXAMINATION ON ADMISSION: Appearance: 32 y/o male, appear stated age, making intermittent eye contact, fair grooming and hygiene. Behavior: cooperative Gait: normal Abnormal motor activity: normal Speech: normal rate and rhythm, low tone and volume Mood: depressed Affect: constricted Thought process: coherent Thought Content: Suicidal/Homicidal ideation: passive si, no hi Delusions: none Obsessions: none Phobia: none Perceptual disturbance: none Attention: fair Orientation: grossly intact Concentration: limited Memory: fair Insight: fair Judgment: fair Impulse control: fair at time of interview DIAGNOSIS ON ADMISSION: Depressive Disorder unspecified, Alcohol Use Disorder Prov: Alcohol Induced Depressive Disorder, Cannabis Abuse DIAGNOSIS ON DISCHARGE: Alcohol Use Disorder, Alcohol Induced Depressive Disorder, Cannabis Abuse Objective - Appearance Appearance: Healthy Appearing Dysmorphic Features: No Hygiene: Normal Grooming: Fairly Well Kept - Behavior Psychomotor Activities: Normal Exhibits Abnormal Movement: No - Attitude and Relatedness Attitude and Relatedness: Cooperative Eye Contact: Fair - Speech Quality: Unpressured Latencies: Normal Quantity: Appropriate - Mood Patient's Decription of Mood: "Anxious" - Affect Observed Affect: Fair Affect Consistent with: Euthymia - somewhat - Thought Process Patient's Thought Process: Coherent Thought Content: No Passive Wish, No Suicidal Planning, No Homicidal Ideation, No Paranoid Ideation - Sensorium Experiencing Hallucinations: No, Sensorium is Clear Type of Hallucinations: Visual: No, Auditory: No, Command: No - Level of Consciousness Level of Consciousness: Alert Orientation: Yes Intact, Yes Orientated to Time, Yes Orientated to Place, Yes Orientated to Person - Impulse Control Impulse Control: Intact - Insight and Judgement Insight and Judgement: Fair - Group Participation Particating in Group Activities: Yes - Medication Management Medication Management Adherence: Yes Treatment Course & Assessment Clinical Course & Impression: Patient is 32 y/o male with history of Alcohol Use Disorder. Patient currently admitted due to worsening of depression and suicidal thoughts with plan and alcoholism. Patient has also struggled with recent break up with his girl friend. Patient was a danger to self if discharged hence will be stabilized on inpatient unit with medication adjustments and therapy. Patient was admitted to [facility] on Q 15 min observation. Patient is full code. Patient was on voluntary admission status. Integrated patient into the milieu individual and group psychotherapy. Social work consulted for therapy and discharge planning. Patient gave informed consent to start patient on WAM for alcohol withdrawal symptoms. Patient was also started on Remeron 7.5 mg PO HS for depression. Patient was also started on Hydroxyzine 50 mg PO Q6HRS PRN anxiety. Will continue to monitor and follow up for improvement and side effects. Patient was compliant with his medications, no reported side effects. Patient reports continued symptoms of depression and anxiety. Patient reported taking Hydroxyzine PRN for anxiety. Patient motivated to get help for alcohol use and depression. Patient wanted to explore options for himself regarding rehab treatment (inpatient or outpatient). Patient sleeping was better with Remeron. Patient mood was less anxious and dysphoric and reports improvement in suicidal thoughts. Patient felt that his room mate was supportive and came to see him at the hospital and is also willing to help patient and remove alcohol from the house that they are sharing. Patient also setting up goals to switch his work and prevent getting exposed to alcohol that will result in relapse. Patient was recovering fine with alcohol withdrawal. was motivated to get help for alcohol use and depression. Patient was interested in inpatient rehab after knowing about available opitions but was worried about logistics related to him going to inpatient rehab, his housing, insurance, work etc for which he was provided education and support. Patient's medications were adjusted with increment in Remeron to 15 mg at Bedtime, Hydroxyzine was kept at 50 mg PO Q6HRS PRN anxiety. [facility] protocol for alcohol withdrawal to be continued. Patient also in the process of being referred to in patient rehab. Patient was attending therapy during this hospitalization and also AA meeting which he found very helpful. Patient learned coping strategies to help distress and was using it effectively. Patient behavior was in good control was safe on all checks. Patient improved and mood was more stable. Patient reported not taking remeron and other medications after acute alcohol withdrawals had resolved. Patient was sleeping fine and eating appropriately. Patient was offered medications to help with alcohol cravings and urges. Patient reported being strong in his will power but will resume medication management if having difficulty with cravings during outpatient treatment process for alcohol and cannabis abuse. Patient was not interested in inpatient rehab any more despite knowing that he has a bed available tomorrow at [facility]. Patient was focused on his discharge and seeking outpatient rehab treatment and AA meeting. Patient mood was stable, less anxious, not suicidal/homicidal, not manic or psychotic. Patient signed 72 hours and wanted to be discharged today. Patient was willing to follow up outpatient rehab. As patient was doing fine and was not a danger to self and others. Patient caring for himself well. Hence after discussing with team patient was discharged with plan to follow up outpatient substance/alcohol use treatment and AA/NA Meetings. Merits Inpatient Hospitalization: No Clear for Discharge: Adequate Clinical Respons, Acceptable Safety Profile, Low Utility of Inpt Care Inpatient DSM-V Dx: F33.8 Discharge Planning - Discharge Planning Recommendations for Continuing Care: Substance Abuse Counseling - and AA/NA meeting Medications: Discharge Medications Folic Acid (Folvite Tab*) 1 mg PO DAILY [facility] Last Admin: 07/28/18 09:16 Dose: 1 mg Multivitamins (Theragran Tab*) 1 tab PO DAILY [facility] Last Admin: 07/28/18 09:16 Dose: 1 tab Thiamine HCl (Vitamin B-1 Tab*) 100 mg PO DAILY [facility] Last Admin: 07/28/18 09:16 Dose: 100 mg Discharge Planning: Prescriptions provided for discharge [x] Yes [] No Follow up care details as per social work arrangements. Patient response to discharge plan: [x] eager for discharge [] agreeable with discharge plan [] ambivalent about discharge [] disagrees with discharge today
== END 2018-07-28 17:10 | disposition home or self-care (01) | DRG 775 ==
LOC: ED 13:19 → BSU 22:17
PROVIDERS: ADMIT Psychiatry & Neurology Psychiatry; ATTEND Psychiatry & Neurology Psychiatry
PROC: GZHZZZZ Group Psychotherapy (ICD-10-PCS; principal; 2018-07-22)
DX: F10.24 Alcohol dependence with alcohol-induced mood disorder (principal); R45.851 Suicidal ideations; F41.9 Anxiety disorder, unspecified; Y90.9 Presence of alcohol in blood, level not specified; Z81.8 Family history of other mental and behavioral disorders
CPT/HCPCS: 36415; 80053; 80061; 80307; 80320; 80329; 81003; 83036; 84443; 85025; 90686; 90853; 93005; 99222; 99231; 99238; 99284; A9270-GY; G0480

== ENCOUNTER 2020-04-26 02:43 | Observation (INO) ==
[2020-04-26] MEDS ORDERED: Famotidine IV 10 MG/ML 2 ml VIAL (20 mg) IV ONE ×2 (03:02→15:30)
[2020-04-26] MEDS ORDERED: NS 0.9% 1000 ml BAG 1,000 ML IV ONE ×2 (03:02→04:51)
[2020-04-26] MEDS ORDERED: Ondansetron 4 mg VIAL 2 MG/ML 2 ml VIAL IV ONE (03:03)
[2020-04-26 03:23] LABS: ABS Basophils 0.1 10^3/ul (0-0.2); ABS Lymphocytes 0.7 10^3/ul (1.0-4.8); ABS Monocytes 1.2 10^3/ul (0-0.8); Eosinophil % 0.3 %; Hematocrit 42 % (42-52); Hemoglobin 14.5 g/dL (14.0-18.0); Lymphocyte % 6.1 %; Mean Corpuscular HGB Conc 34 g/dL (31-36); Mean Corpuscular Hemoglobin 32 pg (27-31); Mean Corpuscular Volume 93 fL (80-94); Mean Platelet Volume 9.5 fL (7.4-10.4); Platelet Count 192 10^3/uL (150-450); Red Blood Count 4.54 10^6 /uL (4.18-5.48); Red Cell Distribution Width 13 % (10-15); White Blood Count 11.9 10^3/uL (3.5-10.8)
[2020-04-26 03:28] LABS: INR 1.02 (0.82-1.09)
[2020-04-26 03:58] LABS: Albumin 4.4 g/dL (3.2-5.2); Albumin/Globulin Ratio 1.4 (1-3); C Reactive Protein 43.54 mg/L (<8.01); Calcium 9.4 mg/dL (8.6-10.3); EGFR African American 104.8 (>60); EGFR Non-African American 86.6 (>60); Globulin 3.1 g/dL (2-4); Potassium 3.4 mmol/L (3.5-5.0); Total Protein 7.5 g/dL (6.4-8.9)
[2020-04-26 04:05] LABS: Urine Appearance Clear; Urine Bilirubin Negative (Negative); Urine Blood 1+ (Negative); Urine Color Yellow; Urine Glucose Negative (Negative); Urine Ketones 1+ (Negative); Urine Nitrite Negative (Negative); Urine Protein Negative (Negative); Urine Specific Gravity 1.014 (1.010-1.030); Urine Urobilinogen Negative (Negative)
[2020-04-26 04:14] LABS: Urine Bacteria Absent (Absent); Urine Red Blood Cell Trace(0-2/hpf) (Absent); Urine White Blood Cell Trace(0-5/hpf) (Absent)
[2020-04-26] MEDS ORDERED: Iohexol 300 (CONTRAST) 10 ML SDV IV ONE (04:19)
[2020-04-26] MEDS ORDERED: Piperacillin/Tazobac ADVAN 3.375 GM in NS 0.9% 100 ml BAG 100 ML IVPB ONE (04:44)
[2020-04-26] MEDS ORDERED: NS 0.9% 1000 ml BAG 400 ML IV ONE (08:00)
[2020-04-26] MEDS ORDERED: Morphine 2 MG/ML SYRINGE IV PRN (09:12)
[2020-04-26] MEDS: NS 0.9% 1000 ml BAG 1,000 ML IV SCH ×2 (09:26→19:33)
[2020-04-26] MEDS ORDERED: Ondansetron 4 mg VIAL 2 MG/ML 2 ml VIAL IV PRN ×3 (10:12→17:37)
[2020-04-26] MEDS: Piperacillin/Tazobac ADVAN 3.375 GM in NS 0.9% 100 ml BAG 100 ML IV SCH ×2 (10:40→19:06)
[2020-04-26] MEDS ORDERED: NS 0.9% 1000 ml BAG 1,000 ML IV SCH (13:30)
[2020-04-26] MEDS ORDERED: Buffered Lidocaine 1% SYRIN 1 ml INTRADERM ONE (15:30)
[2020-04-26] MEDS ORDERED: Midazolam 5 mg/5 ml VIAL 1 mg/ml 5 ml VIAL (5 mg) ONE (15:50)
[2020-04-26] MEDS ORDERED: Propofol 10 MG/ML 20 ML BTL ONE (15:50)
[2020-04-26] MEDS ORDERED: fentaNYL 250 mcg/5 ml 50 MCG/ML 5 ml VIAL (250 MCG) ONE (15:50)
[2020-04-26] MEDS ORDERED: HYDROmorphone 1 MG/1 ML SYRINGE ONE (15:50)
[2020-04-26] MEDS ORDERED: Rocuronium 50 mg VIAL 10 mg/ml 5 ml VIAL (50 mg) ONE (15:50)
[2020-04-26] MEDS ORDERED: Lidocaine 2% PF 5 ML VIAL ONE (15:50)
[2020-04-26] MEDS ORDERED: Morphine 2 MG/ML SYRINGE ONE (15:50)
[2020-04-26] MEDS ORDERED: EPHEDrine (Pressors) 50 MG/ML VIAL ONE (15:50)
[2020-04-26] MEDS ORDERED: Ondansetron 4 mg VIAL 2 MG/ML 2 ml VIAL ONE (15:50)
[2020-04-26] MEDS ORDERED: Dexamethasone IV 4 MG/ML VIAL 1 ml VIAL ONE (15:50)
[2020-04-26] MEDS ORDERED: Lactated Ringers 1000 ml BAG 1,000 ML IV SCH (16:00)
[2020-04-26] MEDS ORDERED: Bupivacaine 0.25% SDV 30 ML ONE ×2 (16:18)
[2020-04-26] MEDS ORDERED: Naloxone 0.4 mg VIAL 0.4 mg/ml 1 ml VIAL IV PRN (17:31)
[2020-04-26] MEDS ORDERED: fentaNYL 100 mcg/2 ml 50 MCG/ML VIAL IV PRN (17:37)
[2020-04-26] MEDS ORDERED: Morphine 4 MG/ML VIAL (1 ml) IV PRN (21:14)
[2020-04-26] MEDS: Morphine 4 MG/ML VIAL (1 ml) IV SCH ×3 (21:47→21:59)
[2020-04-27] MEDS: Piperacillin/Tazobac ADVAN 3.375 GM in NS 0.9% 100 ml BAG 100 ML IV SCH ×2 (02:11→10:33)
[2020-04-27] MEDS: NS 0.9% 1000 ml BAG 1,000 ML IV SCH (02:13)
[2020-04-27] MEDS: Morphine 2 MG/ML SYRINGE IV PRN ×2 (04:06→07:06)
[2020-04-27 06:15] LABS: ABS Lymphocytes 0.4 10^3/ul (1.0-4.8); ABS Monocytes 0.7 10^3/ul (0-0.8); ABS Neutrophils 11.9 10^3/ul (1.5-7.7); Hematocrit 37 % (42-52); Hemoglobin 12.6 g/dL (14.0-18.0); Lymphocyte % 3.1 %; Mean Corpuscular HGB Conc 34 g/dL (31-36); Mean Corpuscular Hemoglobin 32 pg (27-31); Mean Corpuscular Volume 95 fL (80-94); Mean Platelet Volume 10.4 fL (7.4-10.4); Platelet Count 151 10^3/uL (150-450); Red Cell Distribution Width 13 % (10-15)
[2020-04-27 06:27] LABS: BUN/Creatinine Ratio 8.3 (8-20); Calcium 8.4 mg/dL (8.6-10.3); EGFR African American 128.1 (>60); EGFR Non-African American 105.9 (>60); Potassium 3.6 mmol/L (3.5-5.0)
[2020-04-27 07:26] VITALS: BP 132/78
== END 2020-04-27 11:36 | disposition home or self-care (01) ==
LOC: ED 02:43 → SSU 16:56 → SDS 16:56
PROVIDERS: ADMIT Surgery Surgical Critical Care; ATTEND Surgery Surgical Critical Care

== ENCOUNTER 2020-04-29 18:51 | Inpatient (IN) ==
[2020-04-29] MEDS ORDERED: Ondansetron 4 mg VIAL 2 MG/ML 2 ml VIAL IV ONE (20:36)
[2020-04-29] MEDS ORDERED: Morphine 4 MG/ML VIAL (1 ml) IV ONE (20:36)
[2020-04-29 21:09] LABS: Hematocrit 40 % (42-52); Hemoglobin 14.1 g/dL (14.0-18.0); Mean Corpuscular HGB Conc 35 g/dL (31-36); Mean Corpuscular Hemoglobin 32 pg (27-31); Mean Corpuscular Volume 92 fL (80-94); Mean Platelet Volume 9.4 fL (7.4-10.4); Platelet Count 217 10^3/uL (150-450); Red Blood Count 4.39 10^6 /uL (4.18-5.48); Red Cell Distribution Width 13 % (10-15); White Blood Count 12.4 10^3/uL (3.5-10.8)
[2020-04-29 21:14] LABS: ABS Basophils 0.1 10^3/ul (0-0.2); ABS Eosinophils 0.1 10^3/ul (0-0.6); ABS Lymphocytes 0.4 10^3/ul (1.0-4.8); ABS Monocytes 1.7 10^3/ul (0-0.8); ABS Neutrophils 10.2 10^3/ul (1.5-7.7); Eosinophil % 0.6 %; Lymphocyte % 3.3 %
[2020-04-29 21:26] LABS: ALT 21 U/L (7-52); AST 11 U/L (13-39); Albumin 3.5 g/dL (3.2-5.2); Alkaline Phosphatase 61 U/L (34-104); Anion Gap 8 mmol/L (2-11); BUN/Creatinine Ratio 6.9 (8-20); Blood Urea Nitrogen 6 mg/dL (6-24); C Reactive Protein 287.52 mg/L (<8.01); CO2 Carbon Dioxide 27 mmol/L (22-32); Calcium 9.2 mg/dL (8.6-10.3); Chloride 101 mmol/L (101-111); EGFR Non-African American 101.7 (>60); Globulin 3.4 g/dL (2-4); Glucose 98 mg/dL (70-100); Lipase < 10 U/L (11.0-82.0); Potassium 3.2 mmol/L (3.5-5.0); Sodium 136 mmol/L (135-145); Total Protein 6.9 g/dL (6.4-8.9)
[2020-04-29] MEDS ORDERED: Iohexol 300 (CONTRAST) 10 ML SDV IV ONE (23:13)
[2020-04-29] MEDS ORDERED: Lactated Ringers 1000 ml BAG 1,000 ML IV ONE (23:45)
[2020-04-29] MEDS ORDERED: Piperacillin/Tazobac ADVAN 3.375 GM in NS 0.9% 100 ml BAG 100 ML IVPB ONE (23:52)
[2020-04-30] MEDS: Ondansetron 4 mg VIAL 2 MG/ML 2 ml VIAL IV PRN ×4 (01:35→23:23)
[2020-04-30] MEDS: HYDROmorphone 1 MG/1 ML SYRINGE IV SLOW PU PRN ×5 (01:35→23:23)
[2020-04-30 02:00] LABS: Urine Appearance Clear; Urine Bilirubin Negative (Negative); Urine Blood Negative (Negative); Urine Color Yellow; Urine Glucose Negative (Negative); Urine Ketones 2+ (Negative); Urine Nitrite Negative (Negative); Urine Protein 1+(30 mg/dL) (Negative); Urine Specific Gravity 1.014 (1.010-1.030); Urine Urobilinogen Negative (Negative)
[2020-04-30 02:31] LABS: Urine Bacteria Absent (Absent); Urine Red Blood Cell Trace(0-2/hpf) (Absent); Urine White Blood Cell Trace(0-5/hpf) (Absent)
[2020-04-30] MEDS: NS 0.9% 1000 ml BAG 1,000 ML IV SCH ×3 (03:03→17:27)
[2020-04-30] MEDS: Piperacillin/Tazobactam VIAL 3.375 GM in NS 0.9% 100 ml BAG 100 ML IVPB SCH ×5 (05:54→22:07)
[2020-05-01] MEDS: NS 0.9% 1000 ml BAG 1,000 ML IV SCH ×3 (00:11→13:49)
[2020-05-01] MEDS: HYDROmorphone 1 MG/1 ML SYRINGE IV SLOW PU PRN ×4 (02:56→13:44)
[2020-05-01 05:29] LABS: Hematocrit 36 % (42-52); Hemoglobin 12.7 g/dL (14.0-18.0); Mean Corpuscular HGB Conc 35 g/dL (31-36); Mean Corpuscular Hemoglobin 33 pg (27-31); Mean Corpuscular Volume 93 fL (80-94); Mean Platelet Volume 8.9 fL (7.4-10.4); Platelet Count 219 10^3/uL (150-450); Red Cell Distribution Width 13 % (10-15)
[2020-05-01] MEDS: Piperacillin/Tazobactam VIAL 3.375 GM in NS 0.9% 100 ml BAG 100 ML IVPB SCH ×3 (05:32→22:32)
[2020-05-01] MEDS: Ondansetron 4 mg VIAL 2 MG/ML 2 ml VIAL IV PRN ×2 (05:41→13:44)
[2020-05-01 05:45] LABS: BUN/Creatinine Ratio 6.2 (8-20); EGFR African American 133.6 (>60); EGFR Non-African American 110.4 (>60); Potassium 3.4 mmol/L (3.5-5.0)
[2020-05-01] MEDS ORDERED: NS 0.9% 1000 ml BAG 1,000 ML IV SCH (19:03)
[2020-05-02] MEDS: Piperacillin/Tazobactam VIAL 3.375 GM in NS 0.9% 100 ml BAG 100 ML IVPB SCH ×2 (06:33→13:40)
[2020-05-02 07:20] VITALS: BP 144/82
== END 2020-05-02 15:35 | disposition home or self-care (01) | DRG 392 ==
LOC: SSU 18:51 → ED 18:51
PROVIDERS: ADMIT Surgery; ATTEND Surgery